=== PATIENT | female | born 1985 | race Caucasian/White ===

== ENCOUNTER 2019-07-27 14:34 | Emergency (ER) | payer OTHER | END 2019-07-27 15:46 | disposition other institution (70) | LOC: ED 14:34 | DX: Z02.89 Encounter for other administrative examinations (principal) ==

== ENCOUNTER 2019-07-27 14:34 | Emergency (ER) | payer MEDICAID ==
[~2019-07-27] VITALS: Ht 157.5 cm; Wt 68.0 kg
[2019-07-27 15:13] VITALS: Ht 157.5 cm; Wt 68.0 kg
[2019-07-27 15:46] VITALS: BP 144/109
== END 2019-07-27 15:46 | disposition other institution (70) ==
LOC: ED 14:34
DX: I10 Essential (primary) hypertension (principal); Z13.89 Encounter for screening for other disorder; Z88.5 Allergy status to narcotic agent
CPT/HCPCS: 82962